=== PATIENT | female | born 1940 | race Caucasian/White ===

== ENCOUNTER 2019-08-12 10:23 | Outpatient (CLI) | payer MEDICARE, BC ==
[~2019-08-12] VITALS: Ht 170.2 cm; Wt 90.9 kg
[2019-08-12] VITALS (12 sets, daily range): BP systolic 128–165; BP diastolic 65–97; Ht 170.2 cm; Wt 90.9 kg
--- NOTE | ~2019-08-12 | HEMODYNAMI ---
PATIENT:LUISANA SILVA MEDICAL RECORD: [id number] : 42 LOCATION:[facility] ADMISSION DATE: 08/12/19 Generatedon:08/12/201914:36 Patient name: LUISANA SILVA Patient #: [id number] SSN: : 1940 Date of study: 08/12/2019 Page: Of Hemodynamic Procedure Report Patient Data Patient Demographics Procedure consent was obtained First Name: LUISANA Gender: Female Last Name: RICARDO : 1940 [facility] Initial: KRIS Age: 79 year(s) Patient #: [id number] Race: Unknown Additional ID: [id number] Contact details Address: [address] [place] [address] State: [place] City: [facility] Zip code: [address] Past Medical History Allergies Allergen Reaction Date Comments Reported Other allergy 08/12/2019 lysinopril, novacan Admission Admission Data Admission Date: 08/12/2019 Admission Time: 10:23 Procedure Procedure Types Cath Procedure Peripheral Cath Diagnostic Procedure Kyphoplasty Kyphoplasty Thoracic Procedure Description Procedure Date Procedure Date: 08/12/2019 Procedure Start Time: 13:46 Procedure Staff Name Function Marino Young MD Performing Physician Josiane Gonsalez RT Monitor DALE GALE RT Scrub Leidy Chaney RN Nurse Sarika Clarke CRNA Additional personnel Procedure Data Cath Procedure Fluoroscopy Diagnostic fluoroscopy Total fluoroscopy Time: time: 10.8 min 10.8 min Diagnostic fluoroscopy Total fluoroscopy dose: 418 dose: 418 mGy mGy Procedure Medications Medication Administration Route Dosage Ancef (1Gm/50ml NS) I.V.P.B 1 g Hemodynamics Rest Heart Rate: 78 (bpm) Snapshots Pre Cath Intra NCS Post Cath Vital Signs Time Heart Resp SPO2 etCO2 NIBP Rhythm Pain Sedation Rate (ipm) (%) (mmHg) (mmHg) Status Level (bpm) 13:23:38 78 17 99 0 120/72(91) NSR 0 (11) 10(A) , No pain 13:27:49 76 16 99 1.5 121/74(95) NSR 0 (11) 10(A) , No pain 13:32:03 78 18 99 0.7 116/70(86) NSR 0 (11) 10(A) , No pain 13:36:13 77 19 99 1.5 115/72(92) NSR 0 (11) 10(A) , No pain 13:40:25 76 16 99 0 117/67(92) NSR 0 (11) 10(A) , No pain 13:44:39 75 17 98 0.7 110/62(81) NSR 0 (11) 10(A) , No pain 13:48:49 74 20 97 0.7 104/63(87) NSR 0 (11) 10(A) , No pain 13:52:59 74 18 97 0 105/63(87) NSR 0 (11) 10(A) , No pain 13:57:09 73 15 97 1.5 97/57(79) NSR 0 (11) 10(A) , No pain 14:01:16 73 17 97 0.7 97/59(77) NSR 0 (11) 10(A) , No pain 14:05:22 73 14 96 0 97/63(75) NSR 0 (11) 10(A) , No pain 14:09:30 72 13 97 0.7 98/58(74) NSR 0 (11) 10(A) , No pain 14:13:38 74 14 97 0.7 89/57(82) NSR 0 (11) 10(A) , No pain 14:17:42 72 16 97 0.7 94/55(72) NSR 0 (11) 10(A) , No pain 14:21:46 72 14 97 1.5 90/61(72) NSR 0 (11) 10(A) , No pain 14:25:49 72 15 97 1.5 97/62(81) NSR 0 (11) 10(A) , No pain 14:29:55 72 18 97 3 97/62(78) NSR 0 (11) 10(A) , No pain 14:34:01 97 1.5 99/61(79) NSR 0 (11) 10(A) , No pain Medications Time Medication Route Dose Verified Delivered Reason Notes Effective ness by by 13:25:28 Ancef I.V.P.B 1 g Marino Jacquesi used for (1Gm/50ml Hector Chaney RN procedure NS) Procedure Log Time Note 13:11:15 Leidy Chaney RN sent for patient. Start room use. 13:11:17 Time tracking: Regular hours (M-F 7:00 - 5:00) 13:11:21 Plan of Care:Hemodynamics will remain stable., Cardiac rhythm will remain stable., Comfort level will be maintained., Respiratory function will remain adequate., Patient/ family verbilizes understanding of procedure., Procedure tolerated without complication., Recovers from procedure without complications.. 13:11:27 Patient received from Outpatients to IR Alert and oriented. Tansferred to table in Prone position. 13:11:30 Signed procedure consent form obtained from patient. 13:11:31 Warm blankets applied, and mirela hugger turned on for patient comfort. 13:11:31 Correct patient and procedure confirmed by team. 13:11:32 ECG and BP/O2 sat monitors applied to patient. 13:11:41 - 13:11:42 - 13:11:49 H&P Date Dictated: 08/12/2019 H&P Addendum completed by physician on day of procedure. (MUST COMPLETE FOR ALL OUTPATIENTS). 13:11:51 Pre-procedure instructions explained to patient. 13:11:51 Pre-op teaching completed and patient verbalized understanding. 13:11:54 Patient NPO since Midnight. 13:13:07 Patient allergic to Other allergylysinopril, novacan 13:13:09 Is patient on blood thinner?No 13:13:17 - 13:13:21 ---- See anethesia notes for Pre-sedation anethsthesia assessment.---- 13:13:57 IV patent on arrival in left wrist with 0.45%NaCl at KVO. 13:14:06 Thoracic area was prepped with chlora-prep and draped in sterile fashio n 13:14:12 - 13:17:47 Use device set IR Diagnostic 13:17:49 Bag Decanter () opened to sterile field. 13:17:50 Sterile Angiographic Pack opened to sterile field. 13:17:50 Tegaderm 4 x 4 (1626W) opened to sterile field. 13:20:36 [place] BONE BX 11GA kit opened to sterile field. 13:20:37 [place] BONE CEMENT WITH NEEDLE AUTOPLEX Kit opened to sterile field. 13:20:38 [place] 15/2 VERT AUGMENTATION opened to sterile field. 13:20:38 [place] BONE FILLER 10G VERTEPORT opened to sterile field. 13:20:55 - 13:22:35 Vital chart was started 13:22:38 Baseline sample Acquired. 13:22:41 Full Disclosure recording started 13:22:44 - 13:25:28 Ancef (1Gm/50ml NS) 1 g I.V.P.B was administered by Leidy Chaney RN; used for procedure; Verbal order read back and verified. 13:45:04 Physician arrived 13:45:04 --------ALL STOP TIME OUT------ 13:45:05 Final Timeout: patient, procedure, and site verified with staff and physician. All members of the team are in agreement. 13:46:08 Fire Safety Assessment: A--An alcohol-based skin anteseptic being used preoperatively., C--Open oxygen or nitrous oxide is being used. 13:46:16 Procedure started. 13:46:23 Local anesthetic to Thoracic area with Lidocaine 1% by Marino Young MD.INITIAL ACCESS ONLY 13:58:48 Jamshidi needle introduced. 13:58:53 Bone bx needle placed. 14:05:41 Kyphoplasty balloon introduced. 14:12:59 Cement introduced to vertebral body. t12 14:19:36 Cement introduced to vertebral body. t11 14:25:22 Procedure ended.(Physican Out) 14:26:01 Fluoroscopy time 10.80 minutes. 14:26:18 Fluoroscopy dose: 418 mGy 14:26:18 Flurop Dose total: 418 14:26:22 Procedure and supply charges have been captured, reviewed, submitted an d are correct. 14:35:52 Report given to Outpatients. 14:35:58 Patient transfered to Outpatients with Stretcher. 14:36:21 Vital chart was stopped Device Usage Item Name Manufacture Quantity Catalog Hospital Part Current Minim al Lot# / Number Charge Number Stock Stock Serial# Code Bag Decanter Microtek 1 [id number] 5 () [employer] Sterile Cardinal 1 [id number] 5 Angiographic Health Pack Tegaderm 4 x 3M 1 [id number] [id number] 5 4 (1626W) [place] BONE [place] 1 [id number] [id number] [id number] 5 BX 11GA kit [place] BONE [place] 1 [id number] [id number] 5 CEMENT WITH NEEDLE AUTOPLEX Kit [place] 15/2 [place] 1 [id number] [id number] 221033 [id number] 5 VERT AUGMENTATION [place] BONE [place] 1 [id number] [id number] [id number] [id number] 5 FILLER 10G [place] Signature Audit [place] Stage Time Signature Unsigned Intra-Procedure 08/12/2019 Josiane Gonsalez 2:36:14 PM RT(R) [place] [id number] [place] [address]
[2019-08-12 10:51] LABS: BASOPHILS 0.3 % (0-2); HEMATOCRIT 44.7 % (36.0-48.0); HEMOGLOBIN 14.4 g/dL (12-16); IMMATURE GRANULOCYTES 0.2 % (0-5); LYMPHOCYTES 20.4 % (15-50); MCH 30.1 pg (26.0-34.0); MCHC 32.2 g/dL (31.0-37.0); MCV 93.5 fL (80.0-100.0); MEAN PLATELET VOLUME 10.4 fL (7.4-10.4); MONOCYTES 7.7 % (2-11); NEUTROPHILS 68.4 % (40-80); PLATELET COUNT 208 10x3/uL (130-400); RBC 4.78 10x6/uL (4.00-5.40); RDW 13.3 % (11.5-14.5)
[2019-08-12 10:57] LABS: ANION GAP 12.7 mmol/L (8-16); CALCIUM 9.7 mg/dL (8.5-10.1); CARBON DIOXIDE 27.4 mmol/L (21.0-32.0); CREATININE - SERUM 0.9 mg/dL (0.6-1.3); POTASSIUM - SERUM 4.1 mmol/L (3.5-5.1)
[2019-08-12 10:58] LABS: APTT 29.4 SECONDS (22.8-39.4); INR 0.98 (0.85-1.17); PROTIME 12.5 SECONDS (11.6-15.0)
[2019-08-12] MEDS ORDERED: COZAAR50 MG PO (12:22)
[2019-08-12] MEDS ORDERED: ZOCOR20 MG PO (12:23)
[2019-08-12] MEDS ORDERED: HYDROXYCHLOROQUINE PO (12:24)
[2019-08-12] MEDS ORDERED: FOSTEUM PO (12:26)
[2019-08-12] MEDS ORDERED: ZYRTEC10 MG PO (12:27)
--- NOTE | 2019-08-12 17:14 | NUR ---
PATIENT PROVIDED WITH FRESH WATER AND IS SITTING ON THE SIDE OF THE BED. LOWER INCISION SITE IS OBSERVED WITH BLOODY DRAINAGE OVER SQUARE. NO SEEPING UNDER THE TEGADERM. CL IN REACH. WCTM
--- NOTE | 2019-08-12 20:00 | NUR ---
LYING IN BED. ALERT AND ORIENTED X4. RESP EVEN AND NONLABORED. DENIES PAIN. DRSG X2 NOTED TO BACK. UPPER DRSG IS C/D/I. LOWER DRSG IS SATURED WITH BLOODY DRAINAGE BUT IS NOT LEAKING OUT OF OPSITE. AMBULATORY. WALKING TO BATHROOM WITHOUT ASSISTANCE. SALINE LOCK NOTED TO LT FOREARM. NO DISTRESS. CL IN REACH.
[2019-08-13 00:37] VITALS: BP 147/78
--- NOTE | 2019-08-13 02:36 | NUR ---
HAS RESTED WELL SO FAR TONIGHT. LYING IN BED WITH EYES CLOSED. RESP EVEN AND NONLABORED. NO DISTRESS. CL IN REACH.
[2019-08-13 04:48] VITALS: BP 138/72
--- NOTE | 2019-08-13 06:15 | NUR ---
RESTED WELL DURING THE NIGHT. AMBULATING WITHOUT DIFF. DENIES PAIN. NO DISTRESS.
--- NOTE | 2019-08-13 07:40 | NUR ---
PT IS RESTING IN BED WITH EYES RESPIRATIONS ARE EVEN AND UNLABORED. PT DENIES PRESENCE OF PAIN/N/V. DRESSING TO LOWER BACK WITH MODERATE AMOUNT OF RED DRAINAGE NOTED. DRESSING REINFORCED WITH 2X2 GUAZE AND TEGADERM. PT DENIES PRESENCE OFNUMBNESS/TINGLING. PT DENIES DIFFICULTY WITH AMBULATION. BED IS IN THE LOWEST POSITION. CALL LIGHT AND BEDSIDE TABLE ARE WITHIN REACH. SIDE RAILS X 2. PT DENIES FURTHER NEEDS. WILL CONT TO MONITOR.
[2019-08-13 08:25] VITALS: BP 167/86
--- NOTE | 2019-08-13 11:32 | NUR ---
ALL DISCHARGE INSTRUCTIONS COVERED WITH PT AND PT FAMILY MEMBER. ALL DISCHARGE PAPERS SIGNED BY PT. ALL QUESTIONS ANSWERED. PIV TO LEFT FA REMOVED WITH CATHETER TIP INTACT. DRESSING APPLIED. PT DENIES FURTHER QUESTIONS/CONCERNS/NEEDS AT THIS TIME. ALL SIGNED DISCHARGE PAPERS PLACED IN PT CHART.
--- NOTE | 2019-08-13 11:40 | NUR ---
PT ESCORTED FROM ROOM VIA WHEELCHAIR BY VOLUNTEER STAFF. PT DENIES FURTHER QUESTIONS/CONCERNS/NEEDS.
== END 2019-08-13 12:18 | disposition home or self-care (01) ==
LOC: D.OPS 10:23 → D.SP 13:00 → D.RAD 13:00 → D.MS 14:37 → D.OPS 08-13 12:18
PROVIDERS: ATTEND Specialist
DX: M48.54XA Collapsed vertebra, not elsewhere classified, thoracic region, initial encounter for fracture (principal)